=== PATIENT | female | born 1995 | race African-American/Black ===

== ENCOUNTER 2018-04-04 22:07 | Emergency (ER) | payer OTHER ==
[~2018-04-04] VITALS: Ht 152.4 cm; Wt 75.7 kg
[2018-04-04 22:15] VITALS: BP 124/68
--- NOTE | 2018-04-04 22:23 | ED.ADGEN ---
Past History Past Medical History: Constipation Past Surgical History: Cholecystectomy Adult General Chief Complaint Chief Complaint ".. I have not pooped for a month right...".." I am having little hard marbles.. ". ".. If I strain really hard.. ". " I did some exlax yesterday... ".. " Gut is starting to hurt because of the constipation..." HPI HPI Patient is a 22 year old female who presents with above hx and complaints of abd. pain and constipation. Pt. has been eating regular. Has passed gas today but only very small hard marble like stool. Pt. has had a gall bladder removed in past year. Pt. denies problems with urination and or vaginal discharge. Pt. denies trauma, bad food, ill contact or travel. No hx of immunosuppression. No fever or chills. Pt. pain is generalized and more prominent when she attempts to force defecation. Review of Systems Review of Systems Constitutional: Denies fever or chills [] Eyes: Denies change in visual acuity, redness, or eye pain [] HENT: Denies nasal congestion or sore throat [] Respiratory: Denies cough or shortness of breath [] Cardiovascular: No additional information not addressed in HPI [] GI: complaints of abdominal pain. Denies nausea, vomiting, bloody stools or diarrhea []Complaints of Constipation. : Denies dysuria or hematuria [] Musculoskeletal: Denies back pain or joint pain [] Integument: Denies rash or skin lesions [] Neurologic: Denies headache, focal weakness or sensory changes [] Endocrine: Denies polyuria or polydipsia [] All other systems were reviewed and found to be within normal limits, except as documented in this note. Family History Family History Non-contributory Current Medications Current Medications Current Medications Medications (Trade) Dose Ordered Sig/Cathy Start Time Stop Time Status Last Admin Dose Admin Acetaminophen (Tylenol) 1,000 mg 1X ONCE 04/04/18 23:45 04/04/18 23:46 DC 04/04/18 23:39 1,000 MG Magnesium Citrate (Citroma) 296 ml 1X ONCE 04/04/18 23:30 04/04/18 23:31 DC 04/04/18 23:18 296 ML Allergies Allergies Allergies Coded Allergies Type Severity Reaction Last Updated Verified ibuprofen Allergy Severe 04/04/18 Yes Physical Exam Physical Exam Constitutional: Well developed, well nourished,mild distress, non-toxic appearance. [] HENT: Normocephalic, atraumatic, bilateral external ears normal, oropharynx moist, no oral exudates, nose normal. [] Eyes: PERRLA, EOMI, conjunctiva normal, no discharge. [] Neck: Normal range of motion, no tenderness, supple, no stridor. [] Cardiovascular:Heart rate regular rhythm, no murmur [] Lungs & Thorax: Bilateral breath sounds equal at apex with scattered wheezes on auscultation [] Abdomen: Bowel sounds normal, soft, mild generalized tenderness, no masses, no pulsatile masses. Distended. Declined rectal or pelvic exam. Old surgery scars. No true rebound. Skin: Warm, dry, no erythema, no rash. [] Back: No tenderness, no CVA tenderness. [] Extremities: No tenderness, no cyanosis, no clubbing, ROM intact, no edema. [] No psoas sign or heeltap. Neurologic: Alert and oriented X 3, normal motor function, normal sensory function, no focal deficits noted. [] Psychologic: Affect normal, judgement normal, mood normal. [] Current Patient Data Lab Results Laboratory Tests Test 04/04/18 22:40 Urine Collection Type Unknown Urine Color Yellow Urine Clarity Clear Urine pH 6.5 Urine Specific Logan 1.025 Urine Protein Neg (NEG-TRACE) Urine Glucose (UA) Neg mg/dL (NEG) Urine Ketones (Stick) Neg mg/dL (NEG) Urine Blood Neg (NEG) Urine Nitrite Neg (NEG) Urine Bilirubin Neg (NEG) Urine Urobilinogen Dipstick 0.2 mg/dL (0.2 mg/dL) Urine Leukocyte Esterase Neg (NEG) Urine RBC 0 /HPF (0-2) Urine WBC 1-4 /HPF (0-4) Urine Squamous Epithelial Cells Few /LPF Urine Bacteria 0 /HPF (0-FEW) Urine Test Negative (NEG) Urine Opiates Screen Neg (NEG) Urine Methadone Screen Neg (NEG) Urine Barbiturates Neg (NEG) Urine Phencyclidine Screen Neg (NEG) Urine Amphetamine/Methamphetamine Neg (NEG) Urine Benzodiazepines Screen Neg (NEG) Urine Cocaine Screen Neg (NEG) Urine Cannabinoids Screen Neg (NEG) Urine Ethyl Alcohol Neg (NEG) EKG EKG [] Radiology/Procedures Radiology/Procedures I interpretation of acute abdomen film shows no acute cardiopulmonary findings no free air under the diaphragm. Clips from gallbladder surgery. Does have stool throughout the colon.[] Course & Med Decision Making Course & Med Decision Making Pertinent Labs and Imaging studies reviewed. (See chart for details) Patient remain on a clear fluid diet only for 48 hours. No solids or milk products. Must allow bowel rest. If no stool by morning after mag citrate tonight she is to start a course of GoLYTELY . Patient may take Tylenol for pain. Follow-up primary care. Return if any concerns. Re-exam if no improvement. [] Final Impression Final Impression 1. Constipation..[] 2. Abdomen pain Dragon Disclaimer Dragon Disclaimer This electronic medical record was generated, in whole or in part, using a voice recognition dictation system. VARSHA WHEAT MD Apr 04, 2018 22:23
[2018-04-04] MEDS ORDERED: PEG4000S8 PO (22:49)
[2018-04-04] MEDS ORDERED: PEG1POWD PO (22:49)
[2018-04-04 23:00] LABS: BACTERIA,URINE 0 /HPF (0-FEW); BILIRUBIN,URINE NEG (NEG); CLARITY,URINE CLEAR; COLOR,URINE YELLOW; GLUCOSE,URINE NEG (NEG); NITRITE,URINE NEG (NEG); RBC,URINE 0 /HPF (0-2); SQUAMOUS EPITHELIAL CELL,UR FEW /LPF; UROBILINOGEN,URINE 0.2 mg/dL (0.2 mg/dL)
[2018-04-04 23:03] LABS: BARBITURATES NEG (NEG); BENZODIAZEPINES NEG (NEG); CANNABINOIDS NEG (NEG); COCAINE NEG (NEG); METHADONE NEG (NEG); OPIATES NEG (NEG); PHENCYCLIDINE NEG (NEG)
[2018-04-04 23:04] LABS: AMPHETAMINE/METHAMPHETAMINE NEG (NEG)
[2018-04-04] MEDS ORDERED: MAGNESIUM CITRATE 296 ML SOLUTION. PO ONE (23:30)
[2018-04-04 23:36] LABS: U PREG PATIENT NEGATIVE (NEG)
[2018-04-04] MEDS ORDERED: ACETAMINOPHEN 500 MG TABLET PO ONE (23:45)
--- NOTE | 2018-04-05 08:53 | RAD ---
Single view chest and upright and supine AP views abdomen 04/04/2018 CLINICAL INDICATION: Constipation COMPARISON: None. FINDINGS: Cardiac and mediastinal silhouettes are unremarkable. No pleural effusion, pneumothorax or focal consolidation. Right upper quadrant cholecystectomy clips. Moderate retained colonic stool throughout. There is a nonobstructive bowel gas pattern. No pneumoperitoneum. IMPRESSION: 1. No acute cardiopulmonary abnormality. 2. No radiographic evidence of bowel obstruction. 3. Moderate retained colonic stool, may contribute to constipation. Electronically signed by: Joel Martinez MD (04/05/2018 8:50 AM) [facility]
== END 2018-04-04 23:47 | disposition home or self-care (01) ==
LOC: ER 22:07
DX: K59.00 Constipation, unspecified (principal); R10.84 Generalized abdominal pain; Z90.49 Acquired absence of other specified parts of digestive tract; Z88.6 Allergy status to analgesic agent
CPT/HCPCS: 36415; 74022; 80307; 81001; 81025; 99284

== ENCOUNTER → 2018-12-02 | Outpatient (CLI) | payer OTHER ==
[~2018-12-02] MED LIST: PEG1POWD PO; PEG4000S8 PO
== END | disposition home or self-care (01) ==
LOC: EEVIPCON 12:49 → SPEC 12:49
PROVIDERS: ATTEND Preventive Medicine Occupational Medicine
DX: Z00.00 Encounter for general adult medical examination without abnormal findings (principal)
CPT/HCPCS: 36415; 84702